=== PATIENT | female | born 1965 | race Caucasian/White ===

== ENCOUNTER 2017-05-09 14:47 | Outpatient (CLI) | payer MEDICARE, MEDICAID ==
[~2017-05-09 14:47] MED LIST: ACET-1008 PO; BISA10SU22 RC; DOCU250C30 PO; DOXE25CA3; ENOX100S3 SQ; POLY17PO10 PO; RANI150C4 PO; TRAM50TA2 PO; ZOF4T PO; [UNRECOGNIZED DRUG - CODE] PO
== END 2017-05-09 23:59 | disposition home or self-care (01) ==
LOC: RAD 14:47
PROVIDERS: ATTEND Family Medicine
DX: M43.8X5 Other specified deforming dorsopathies, thoracolumbar region (principal); M43.8X4 Other specified deforming dorsopathies, thoracic region; M25.78 Osteophyte, vertebrae; M54.5 Low back pain; J45.909 Unspecified asthma, uncomplicated; E11.22 Type 2 diabetes mellitus with diabetic chronic kidney disease; N18.9 Chronic kidney disease, unspecified; Z87.81 Personal history of (healed) traumatic fracture
CPT/HCPCS: 72074; 72100

== ENCOUNTER 2017-05-11 10:58 | Outpatient (CLI) | payer MEDICARE, MEDICAID | END 2017-05-11 23:59 | disposition home or self-care (01) | LOC: 64 CT 10:58 | PROVIDERS: ATTEND Family Medicine | DX: M47.816 Spondylosis without myelopathy or radiculopathy, lumbar region (principal); M43.8X4 Other specified deforming dorsopathies, thoracic region; G95.29 Other cord compression; J90 Pleural effusion, not elsewhere classified; I70.0 Atherosclerosis of aorta; Z87.81 Personal history of (healed) traumatic fracture | CPT/HCPCS: 72128; 72131 ==

== ENCOUNTER 2018-02-08 10:30 | Outpatient (CLI) | payer MEDICARE, MEDICAID ==
[2018-02-08] MEDS ORDERED: MYCOL15CR TOP (12:14)
[2018-02-08] MEDS ORDERED: QUELT PO (12:14)
[2018-02-08] MEDS ORDERED: LORA1TAB PO (12:14)
== END 2018-02-08 13:11 | disposition home or self-care (01) ==
LOC: EDSTATUS 10:30 → WOUND CARE 10:30
PROVIDERS: ATTEND Surgery
DX: E11.622 Type 2 diabetes mellitus with other skin ulcer (principal); L89.890 Pressure ulcer of other site, unstageable; E11.22 Type 2 diabetes mellitus with diabetic chronic kidney disease; N18.9 Chronic kidney disease, unspecified; J45.909 Unspecified asthma, uncomplicated; Z90.89 Acquired absence of other organs; Z90.49 Acquired absence of other specified parts of digestive tract; Z86.711 Personal history of pulmonary embolism
CPT/HCPCS: 99215

== ENCOUNTER 2018-04-26 09:06 | Day surgery (SDC) | payer MEDICARE, MEDICAID ==
[~2018-04-26 09:06] MED LIST changes: -ACET-1008 PO; -BISA10SU22 RC; -DOCU250C30 PO; -DOXE25CA3; +LORA1TAB PO; +MYCOL15CR TOP; +QUELT PO; -RANI150C4 PO
[2018-04-26] MEDS ORDERED: LIDOcaine/PRILOcaine 5gm cream TP ONE (09:37)
--- NOTE | 2018-04-26 10:45 | NUR ---
Patient arrived via wheelchair from [facility] and was admitted to outpatient wound care for physician visit with Keven Villaseñor MD. Dressing removed, wound cleansed and Emla cream applied per order. Patient assessed for changes in conditions, medications and medical history. 1059 - blood glucose 90. Patient instructed that elevated blood sugars delay healing of the wound and can cause further complications including but not limited to amputation of toes or feet. 1000 - Dr. Villaseñor at bedside accompanied by RN. Wound assessed, time out performed by MD/RN. Wound debrided as detailed in the physician progress/procedure note. Plan of care discussed with patient. Dressings placed per MD orders. Patient instructed on the signs and symptoms of infection and to call the Wound Center if any occur or to go to the ED if we are closed: Increased pain in wound Increase in drainage from the wound Redness in the skin surrounding the wound Bleeding from the wound Temperature of 101 or greater Patient instructed that the weight of their body puts a large amount of pressure on their wounds. This pressure keeps the new tissue from growing and inhibits new blood vessels from forming. Explained that, if they continue to bear weight on a body part that has a wound, the time it takes to heal the wound increases, the wound may get worse or the wound may not heal at all. Patient verbalized understanding of all discharge instructions and plan of care and exited via wheelchair out to [facility] in stable condition with no sign or symptom of distress at time of discharge.
== END 2018-04-26 11:12 | disposition home or self-care (01) ==
LOC: WOUND CARE 09:06
PROVIDERS: ATTEND Surgery
DX: E11.622 Type 2 diabetes mellitus with other skin ulcer (principal); L89.892 Pressure ulcer of other site, stage 2; E11.22 Type 2 diabetes mellitus with diabetic chronic kidney disease; N18.9 Chronic kidney disease, unspecified; J45.909 Unspecified asthma, uncomplicated; Z90.89 Acquired absence of other organs; Z90.49 Acquired absence of other specified parts of digestive tract; Z86.711 Personal history of pulmonary embolism
CPT/HCPCS: 82948; 97597; A6021; A6206; A6212

== ENCOUNTER 2018-05-03 08:57 | Day surgery (SDC) | payer MEDICARE, MEDICAID ==
[2018-05-03] MEDS ORDERED: LIDOcaine/PRILOcaine 5gm cream TP ONE (09:48)
--- NOTE | 2018-05-03 11:15 | NUR ---
Patient arrived via wheelchair accompanied by caregiver from [facility] and was admitted to outpatient wound care for physician visit with Keven Villaseñor MD. Dressing removed, wound cleansed and Emla cream applied per order. Patient assessed for changes in conditions, medications and medical history. 0943 - blood glucose 98. Patient instructed that elevated blood sugars delay healing of the wound and can cause further complications including but not limited to amputation of toes or feet. 1045 - Dr. Villaseñor at bedside accompanied by RN. Wound assessed, time out performed by MD/RN. Wound debrided as detailed in the physician progress/procedure note. Plan of care discussed with patient. Dressings placed per MD orders. Patient instructed on the signs and symptoms of infection and to call the Wound Center if any occur or to go to the ED if we are closed: Increased pain in wound Increase in drainage from the wound Redness in the skin surrounding the wound Bleeding from the wound Temperature of 101 or greater Patient instructed that the weight of their body puts a large amount of pressure on their wounds. This pressure keeps the new tissue from growing and inhibits new blood vessels from forming. Explained that, if they continue to bear weight on a body part that has a wound, the time it takes to heal the wound increases, the wound may get worse or the wound may not heal at all. Patient verbalized understanding of all discharge instructions and plan of care and exited via wheelchair accompanied by caregiver out to [facility] in stable condition with no sign or symptom of distress at time of discharge.
== END 2018-05-03 11:21 | disposition home or self-care (01) ==
LOC: WOUND CARE 08:57
PROVIDERS: ATTEND Surgery
DX: E11.622 Type 2 diabetes mellitus with other skin ulcer (principal); L89.892 Pressure ulcer of other site, stage 2; L98.491 Non-pressure chronic ulcer of skin of other sites limited to breakdown of skin; E11.22 Type 2 diabetes mellitus with diabetic chronic kidney disease; N18.9 Chronic kidney disease, unspecified; J45.909 Unspecified asthma, uncomplicated; Z90.89 Acquired absence of other organs; Z90.49 Acquired absence of other specified parts of digestive tract; Z86.711 Personal history of pulmonary embolism
CPT/HCPCS: 36416; 82948; 97597; A6021; A6206; A6212

== ENCOUNTER 2018-05-10 09:20 | Outpatient (CLI) | payer MEDICARE, MEDICAID ==
[2018-05-10] MEDS ORDERED: LIDOcaine/PRILOcaine 5gm cream TP ONE (09:52)
--- NOTE | 2018-05-10 11:15 | NUR ---
Patient arrived via wheelchair accompanied by caregiver from [facility] and was admitted to outpatient wound care for physician visit with Keven Villaseñor MD. Dressing removed, wound cleansed. Patient assessed for changes in conditions, medications and medical history. 1025 - blood glucose 91. Patient instructed that elevated blood sugars delay healing of the wound and can cause further complications including but not limited to amputation of toes or feet. 1035 - Dr. Villaseñor at bedside accompanied by RN. Wound assessed, time out performed by MD/RN. Wound debrided as detailed in the physician progress/procedure note. Plan of care discussed with patient. hydraulic technician to bedside for left knee xray.Dressings placed per MD orders. Patient instructed on the signs and symptoms of infection and to call the Wound Center if any occur or to go to the ED if we are closed: Increased pain in wound Increase in drainage from the wound Redness in the skin surrounding the wound Bleeding from the wound Temperature of 101 or greater Patient instructed that the weight of their body puts a large amount of pressure on their wounds. This pressure keeps the new tissue from growing and inhibits new blood vessels from forming. Explained that, if they continue to bear weight on a body part that has a wound, the time it takes to heal the wound increases, the wound may get worse or the wound may not heal at all. Patient verbalized understanding of all discharge instructions and plan of care and exited via wheelchair out to [facility] accompanied by caregiver in stable condition with no sign or symptom of distress at time of discharge.
== END 2018-05-10 11:25 | disposition home or self-care (01) ==
LOC: WOUND CARE 09:20 → EDSTATUS 09:30 → WOUND CARE 11:25
PROVIDERS: ATTEND Surgery
DX: E11.622 Type 2 diabetes mellitus with other skin ulcer (principal); L89.892 Pressure ulcer of other site, stage 2; L98.491 Non-pressure chronic ulcer of skin of other sites limited to breakdown of skin; E11.22 Type 2 diabetes mellitus with diabetic chronic kidney disease; N18.9 Chronic kidney disease, unspecified; J45.909 Unspecified asthma, uncomplicated; Z90.89 Acquired absence of other organs; Z90.49 Acquired absence of other specified parts of digestive tract; Z86.711 Personal history of pulmonary embolism
CPT/HCPCS: 36416; 73560; 82948; 97597; A6021; A6206; A6212

== ENCOUNTER 2018-05-17 09:50 | Outpatient (CLI) | payer MEDICARE, MEDICAID ==
--- NOTE | 2018-05-17 14:51 | NUR ---
0484 Patient came safely into lobby via her motorized w/c with her caregiver, Appt time was 1030. 1100 Patient admitted to outpatient wound care clinic for follow-up visit with physician. Dressing removed, wound cleansed. Patient assessed for changes in conditions, medications and medical history. Patient showed no s/s of distress at time of assessment. 1215 at bedside accompanied by RN. Wounds assessed, as detailed in the physician progress/procedure note. Plan of care discussed with patient. Patient discharged from wound care. Patient instructed on the signs and symptoms of infection and to call the Wound Center if any occur or to go to the ED if we are closed: Increased pain in wound Increase in drainage from the wound Redness in the skin surrounding the wound Bleeding from the wound Temperature of 101 or greater Patient instructed that the weight of their body puts a large amount of pressure on their wounds. This pressure keeps the new tissue from growing and inhibits new blood vessels from forming. Explained that, if they continue to bear weight on a body part that has a wound, the time it takes to heal the wound increases, the wound may get worse or the wound may not heal at all. Patient verbalized understanding of all discharge instructions and plan of care. Patient wheeled independently out to lobby in her own w/c and is in stable condition with no sign or symptom of distress at time of discharge.
== END 2018-05-17 12:36 | disposition home or self-care (01) ==
LOC: WOUND CARE 09:50 → EDSTATUS 10:30 → WOUND CARE 12:36
PROVIDERS: ATTEND Surgery
DX: E11.622 Type 2 diabetes mellitus with other skin ulcer (principal); L89.892 Pressure ulcer of other site, stage 2; L98.491 Non-pressure chronic ulcer of skin of other sites limited to breakdown of skin; E11.22 Type 2 diabetes mellitus with diabetic chronic kidney disease; N18.9 Chronic kidney disease, unspecified; J45.909 Unspecified asthma, uncomplicated; Z90.89 Acquired absence of other organs; Z90.49 Acquired absence of other specified parts of digestive tract; Z86.711 Personal history of pulmonary embolism
CPT/HCPCS: A6222; G0463; A6021; A6212

== ENCOUNTER 2018-05-31 09:25 | Day surgery (SDC) | payer MEDICARE, MEDICAID ==
[2018-05-31] MEDS ORDERED: LIDOcaine 2% 5ml jelly ONE (09:43)
--- NOTE | 2018-05-31 11:00 | NUR ---
Patient arrived via wheelchair from [facility] and was admitted to outpatient wound care for physician visit with Keven Villaseñor MD. Dressing removed, wound cleansed and lidocaine applied per order. Patient assessed for changes in conditions, medications and medical history. 0940 - blood glucose 90. Patient instructed that elevated blood sugars delay healing of the wound and can cause further complications including but not limited to amputation of toes or feet. 1040 - Dr. Villaseñor at bedside accompanied by RN. Wound assessed, time out performed by MD/RN. Wound debrided as detailed in the physician progress/procedure note. Plan of care discussed with patient. Dressings placed per MD orders. Patient instructed on the signs and symptoms of infection and to call the Wound Center if any occur or to go to the ED if we are closed: Increased pain in wound Increase in drainage from the wound Redness in the skin surrounding the wound Bleeding from the wound Temperature of 101 or greater Patient instructed that the weight of their body puts a large amount of pressure on their wounds. This pressure keeps the new tissue from growing and inhibits new blood vessels from forming. Explained that, if they continue to bear weight on a body part that has a wound, the time it takes to heal the wound increases, the wound may get worse or the wound may not heal at all. Patient verbalized understanding of all discharge instructions and plan of care and exited via wheelchair out to [facility] in stable condition with no sign or symptom of distress at time of discharge.
== END 2018-05-31 11:17 | disposition home or self-care (01) ==
LOC: WOUND CARE 09:25
PROVIDERS: ATTEND Surgery
DX: E11.622 Type 2 diabetes mellitus with other skin ulcer (principal); L89.152 Pressure ulcer of sacral region, stage 2; L98.491 Non-pressure chronic ulcer of skin of other sites limited to breakdown of skin; E11.22 Type 2 diabetes mellitus with diabetic chronic kidney disease; N18.9 Chronic kidney disease, unspecified; J45.909 Unspecified asthma, uncomplicated; Z90.89 Acquired absence of other organs; Z90.49 Acquired absence of other specified parts of digestive tract; Z86.711 Personal history of pulmonary embolism
CPT/HCPCS: 82948; 97597; A6021; A6206; A6212

== ENCOUNTER 2018-06-07 09:14 | Day surgery (SDC) | payer MEDICARE, MEDICAID ==
[2018-06-07] MEDS ORDERED: LIDOcaine 2% 5ml jelly ONE (09:41)
--- NOTE | 2018-06-07 11:00 | NUR ---
Patient arrived via wheelchair accompanied by her caregiver from [facility] and was admitted to outpatient wound care for physician visit with Keven Villaseñor MD. Dressing removed, wound cleansed and lidocaine applied per order. Patient assessed for changes in conditions, medications and medical history. 0953 - blood glucose 112. Patient instructed that elevated blood sugars delay healing of the wound and can cause further complications including but not limited to amputation of toes or feet. 1024 - Dr. Villaseñor at bedside accompanied by RN. Wound assessed, time out performed by MD/RN. Wound debrided as detailed in the physician progress/procedure note. Plan of care discussed with patient. Dressings placed per MD orders. Patient instructed on the signs and symptoms of infection and to call the Wound Center if any occur or to go to the ED if we are closed: Increased pain in wound Increase in drainage from the wound Redness in the skin surrounding the wound Bleeding from the wound Temperature of 101 or greater Patient instructed that the weight of their body puts a large amount of pressure on their wounds. This pressure keeps the new tissue from growing and inhibits new blood vessels from forming. Explained that, if they continue to bear weight on a body part that has a wound, the time it takes to heal the wound increases, the wound may get worse or the wound may not heal at all. Patient verbalized understanding of all discharge instructions and plan of care and exited via her wheelchair accompanied by her caregiver out to [facility] in stable condition with no sign or symptom of distress at time of discharge.
== END 2018-06-07 10:55 | disposition home or self-care (01) ==
LOC: WOUND CARE 09:14
PROVIDERS: ATTEND Surgery
DX: E11.622 Type 2 diabetes mellitus with other skin ulcer (principal); L89.152 Pressure ulcer of sacral region, stage 2; L98.491 Non-pressure chronic ulcer of skin of other sites limited to breakdown of skin; E11.22 Type 2 diabetes mellitus with diabetic chronic kidney disease; N18.9 Chronic kidney disease, unspecified; J45.909 Unspecified asthma, uncomplicated; G82.50 Quadriplegia, unspecified; Z90.89 Acquired absence of other organs; Z90.49 Acquired absence of other specified parts of digestive tract; Z86.711 Personal history of pulmonary embolism
CPT/HCPCS: 36416; 82948; 97597; A6021; A6206; A6212

== ENCOUNTER 2018-08-24 11:59 | Outpatient (CLI) | payer MEDICARE, MEDICAID | END 2018-08-24 23:59 | disposition home or self-care (01) | LOC: RAD 11:59 | PROVIDERS: ATTEND Family Medicine | DX: E04.9 Nontoxic goiter, unspecified (principal) | CPT/HCPCS: 76536 ==

== ENCOUNTER 2019-08-05 12:12 | Emergency (ER) | payer MEDICARE, MEDICAID ==
[~2019-08-05] VITALS: Ht 172.7 cm; Wt 104.0 kg
[~2019-08-05 12:12] MED LIST changes: +B030R RC; +CHOL100025 PO; +CYCL-1 PO; +DIPH-423 PO; +DOCU100C40 PO; +DOXE50CA4 PO; +HYDR50CA PO; +LORA-269 PO; +LORA-660 PO; +METF500T PO; +OXYB5TAB16 PO; +OXYC10TA57 PO; +SERT-153 PO; -TRAM50TA2 PO; -[UNRECOGNIZED DRUG - CODE] PO
[2019-08-05] MEDS ORDERED: cyclobenzaprine 10mg tablet PO ONE (13:10)
--- NOTE | 2019-08-05 13:29 | NUR ---
pt to CT
[2019-08-05] MEDS ORDERED: morphine 4 MG/ML inj SYRINge IM ONE (15:25)
[2019-08-05 16:55] VITALS: BP 123/74
== END 2019-08-05 16:52 | disposition home or self-care (01) ==
LOC: ER 12:12
DX: M54.2 Cervicalgia (principal); Z90.49 Acquired absence of other specified parts of digestive tract; Z90.89 Acquired absence of other organs; Z98.890 Other specified postprocedural states; Z91.012 Allergy to eggs; Z88.0 Allergy status to penicillin; Z79.2 Long term (current) use of antibiotics; Z88.8 Allergy status to other drugs, medicaments and biological substances; Z79.899 Other long term (current) drug therapy; W19.XXXA Unspecified fall, initial encounter; Y93.89 Activity, other specified; Y92.89 Other specified places as the place of occurrence of the external cause; Y99.8 Other external cause status
CPT/HCPCS: 70450; 72125; 72128; 72131; 72170; 73030; 73501; 93005; 96372; 99285; J2270